=== PATIENT | male | born 2000 | race Caucasian/White ===

== ENCOUNTER 2021-03-14 21:51 | Emergency (ER) | payer BC ==
[~2021-03-14] VITALS: Ht 175.3 cm; Wt 100.0 kg
[2021-03-14] MEDS ORDERED: IBUPROFEN 600MG TABLET PO STA (22:10)
[2021-03-14 22:26] LABS: CLARITY URINE CLOUDY (CLEAR); COLOR URINE YELLOW (YELLOW); KETONES URINE 2+ (NEGATIVE); LEUKOCYTE ESTERASE URINE NEGATIVE (NEGATIVE); NITRITE URINE NEGATIVE (NEGATIVE); OCCULT BLOOD URINE NEGATIVE (NEGATIVE); PH URINE 5.5 (4.5-8.0); PROTEIN URINE NEGATIVE (NEGATIVE); SPECIFIC GRAVITY URINE 1.019 (1.005-1.030); UROBILINOGEN URINE 0.2 E.U./dL (0.2-1.0)
[2021-03-14 23:30] VITALS: BP 111/80
[2021-03-15] MEDS ORDERED: NAPR-681 PO (00:26)
[2021-03-15] MEDS ORDERED: DOXY100C2 PO (00:26)
[2021-03-15] MEDS ORDERED: LIDOCAINE HCL 1% 20ML VIAL (Pyxis) INJ INFIL SCH (00:30)
[2021-03-15] MEDS ORDERED: CEFTRIAXONE SODIUM 500 MG/VIAL IM SCH (00:30)
== END 2021-03-15 01:00 | disposition home or self-care (01) ==
LOC: ER 21:51
DX: N45.1 Epididymitis (principal)
CPT/HCPCS: 76870; 81003; 93976; 96372; 99284; J0696; J3490